=== PATIENT | male | born 1990 | race Caucasian/White ===

== ENCOUNTER 2023-11-29 05:13 | Emergency (ER) | payer OTHER, SELFPAY ==
[2023-11-29 05:15] VITALS: BP 170/106
[2023-11-29 05:37] VITALS: BMI 28.8
--- NOTE | 2023-11-29 05:39 | EDRN ---
Pt thought he had a stiff L shoulder yesterday and went to sleep last night. No known injury to shoulder, happened suddenly. Around 0415 pt woke and went to turn on the light but when he reached for it, he had a shooting pain down his L arm and it
went numb then his R hand started tingling. Pt says it took 45 minutes for him to get in a position to drive to ED. Pt says he has pain with symptoms 'almost like a sharp stabbing, achy pain.' Pt used his medical marijuana for symptoms prior to
coming to ED. No neck pain. Pt has chronic back pain.
--- NOTE | 2023-11-29 05:44 | EDRN ---
Pt says he has stiffness in between his shoulder blades and now L arm is just a dull ache - rest of symptoms resolved. Pt has no problem with R arm currently.
[2023-11-29 05:46] VITALS: BP 138/80
--- NOTE | 2023-11-29 06:40 | ED.GENMED ---
History of Present Illness
<Modesta Elliott DO, Resident - Last Filed: 11/29/23 13:38>
General
Chief Complaint: Numbness
Source: patient
Exam Limitations: clinical condition
Time Seen by Provider: 11/29/23 06:16
Nursing documentation reviewed up to this point in time: agreed with
History of Present Illness
History of Present Illness:
Mr. 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 L shoulder stiffness started mid-day yesterday and went to sleep w/o issue. Pt
woke up on left side, turned neck to the right and reached to turn on a light when a sharp 9/10 pain shot down his neck into his L arm and parasthesias down R arm. He was nauseous from the pain but did not vomit. The R arm parasthesias have
resolved. The L pain is now a dull sharp ache that is a 6/10. The pain is worsened by moving his head.
Pt used medical marijuana 2 hours earlier.
Past History
<Modesta Elliott DO, Resident - Last Filed: 11/29/23 13:38>
Past History
ED Past Medical History: Psychiatric (Anxiety, depression, agoraphobia) and Other (Spinal stenosis, sciatica, chronic pain, prior history of opiate abuse)
ED Past Surgical History: Orthopedic (Right foot surgery, bone fusion with pinning) and Tonsilectomy
Patient has exhibited threatening behavior?: No
Social History
Tobacco: Smoker
Alcohol: Occasional
Drug: Marijuana and Narcotics
Personal: Single
Living: with family
Employment: Not employed
Family History
Family History: Other (Noncontributory)
Review of Systems
<Modesta Elliott DO, Resident - Last Filed: 11/29/23 13:38>
Review of Systems
Constitutional: Denies fever, fatigue, night sweats or chills
EENT: Reports no symptoms
Respiratory: Denies cough or trouble breathing
Cardiac: Denies chest pain or palpitations
ABD/GI: Reports nausea; Denies abdominal pain or vomiting
Neurological: Denies headache
Phy Exam
<Modesta Elliott DO, Resident - Last Filed: 11/29/23 13:38>
Physical Exam
Physical Exam:
.
General Physical Exam
General Presentation: mild distress
General age: appears stated age
General Skin: warm
General Habitus: normal
Cardiovascular Exam
Cardiovascular Exam: regular rate/rhythm, no edema, no gallop and no murmur
Heart Sounds: normal
Pulmonary Exam
Pulmonary Exam: lungs clear and no respiratory distress
Gastrointestinal Exam
Gastrointestinal Exam: normal bowel sounds, non tender, soft, no organomegaly and non distended
Motor
Right upper extremity: 5
Left upper extremity: 4
Sensory
Sensory Exam: decreased sensation (on left arm)
Reflexes
Reflexes: +2: Left tricep, +2: Right tricep, +2: Left bicep, +2: Right bicep, +2: Left brachioradialis and +2: Right brachioradialis
Musculoskeletal Exam
Musculoskeletal Exam: neck pain, neuro vasc intact (+2 radial pulses b/l) and other (positive spurling's test on R)
Skin Exam
Skin Exam: normal color, warm/dry and no rash
Course
<Modesta Elliott DO, Resident - Last Filed: 11/29/23 13:38>
Orders/Labs/Results
Orders:
Orders
11/29/23 06:44
CT Cervical Spine W/o Iv Contr Urgent
Comment:
Reason For Exam: cervical radiculopathy sx
Prednisone [Deltasone] 50 mg PO NOW STA
11/29/23 08:13
MR Cervical Spine Without Urgent
Comment:
Reason For Exam: radicular sx
Recent pill cam endoscopy?: No
11/29/23 08:31
Ketorolac [Toradol] 15 mg IM NOW STA
11/29/23 08:49
Ketorolac [Toradol] 15 mg IV NOW STA
11/29/23 09:31
Midazolam HCl [Versed] 5 mg IV NOW STA
11/29/23 11:30
Midazolam HCl [Versed] 5 mg IV NOW STA
11/29/23 11:32
Ketorolac [Toradol] 15 mg IV NOW STA
11/29/23 12:13
MR Cervical Spine Without Stat
Comment:
Reason For Exam: radicular sx, poor study quality
Recent pill cam endoscopy?: No
Vital Signs
Initial and Last Documented VS:
Initial Vital Signs
Temp Pulse Resp BP Pulse Ox
98.7 F 92 22 170/106 100
11/29/23 05:15 11/29/23 05:15 11/29/23 05:15 11/29/23 05:15 11/29/23 05:15
Last Documented Vital Signs
Temp Pulse Resp BP Pulse Ox
98.7 F 82 14 148/98 98
11/29/23 05:15 11/29/23 13:00 11/29/23 13:00 11/29/23 13:00 11/29/23 13:00
<Wilfredo Mccracken, DO - Last Filed: 11/29/23 14:22>
Orders/Labs/Results
Orders:
Orders
11/29/23 06:44
CT Cervical Spine W/o Iv Contr Urgent
Comment:
Reason For Exam: cervical radiculopathy sx
Prednisone [Deltasone] 50 mg PO NOW STA
11/29/23 08:13
MR Cervical Spine Without Urgent
Comment:
Reason For Exam: radicular sx
Recent pill cam endoscopy?: No
11/29/23 08:31
Ketorolac [Toradol] 15 mg IM NOW STA
11/29/23 08:49
Ketorolac [Toradol] 15 mg IV NOW STA
11/29/23 09:31
Midazolam HCl [Versed] 5 mg IV NOW STA
11/29/23 11:30
Midazolam HCl [Versed] 5 mg IV NOW STA
11/29/23 11:32
Ketorolac [Toradol] 15 mg IV NOW STA
11/29/23 12:13
MR Cervical Spine Without Stat
Comment:
Reason For Exam: radicular sx, poor study quality
Recent pill cam endoscopy?: No
Vital Signs
Initial and Last Documented VS:
Initial Vital Signs
Temp Pulse Resp BP Pulse Ox
98.7 F 92 22 170/106 100
11/29/23 05:15 11/29/23 05:15 11/29/23 05:15 11/29/23 05:15 11/29/23 05:15
Last Documented Vital Signs
Temp Pulse Resp BP Pulse Ox
98.7 F 82 14 148/98 98
11/29/23 05:15 11/29/23 13:00 11/29/23 13:00 11/29/23 13:00 11/29/23 13:00
<Modesta Elliott DO, Resident - Last Filed: 11/29/23 13:38>
MDM/Problems Addressed
Differential Diagnosis Includes:
cervical radiculopathy, cervical radiculitis, thoracic outlet syndrome, double crush syndrome, cervical spondylosis, cervical spondylolisthesis
MDM/Problems Addressed:
Mr. 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 Concerned for cervical spine compression due to positive Spurling maneuver. Neurosurgery
consulted on CT cervical spine results and recommended MRI. Pt w neck pain from CT, so 15mg toradol given for pain management. Unable to tolerate position, so 5mg versed given
Cervical spondylosis and spondylolisthesis unlikely due to no characteristic findings on CT or MRI.
Thoracic outlet syndrome and double crush syndrome less likely due to preserved radial pulses b/l and presence of cervical pathology.
MRI exam limited due to incomplete sequences and motion artifact. Consulted w neurosurgery, who would prefer a more complete study. Pt offered ketamine for doing an MRI, but decided to leave instead. Encouraged pt to follow-up outpatient with .
[facility]
Chronic conditions affecting care: Psychiatric illness
Acute Exacerbation and/or Progression of Chronic Illness: Psychiatric illness
<Modesta Elliott DO, Resident - Last Filed: 11/29/23 13:38>
*Radiology
Radiology exam reviewed: preliminary read by ED provider and radiology read reviewed
*Pulse Oximetry
Patient hypoxic: no
*Critical Care Note
Total Time (30-74mins, 75-104mins- exclusive of procedures): Not Applicable
Data Reviewed
Review of Other/Old Records Reveals: Discharge Summary
Source: records
ED Attending Note
<Modesta Elliott DO, Resident - Last Filed: 11/29/23 13:38>
-
Portions of this chart may have been created with voice recognition software.� Occasional wrong word or��sound alike� substitutions may have occurred due to the inherent limitations of voice recognition software.
<Wilfredo Mccracken DO - Last Filed: 11/29/23 14:22>
ED Attending Note
Patient seen and examined by attending physician: Yes
I performed a history and physical exam of patient and discussed management with resident, I reviewed resident's note and agree with documented findings and plan of care.: Yes
ED Attending Note:
I reviewed and agree with history and treatment plan by Modesta Elliott D.O. My exam revealed 33-year-old male full range of motion in all extremities, somewhat decreased sensation left arm that patient states is improving. MRI that was not
completed, shows large left posterior disc herniation at C7-T1 level. Patient declined to stay for full MRI. He will follow-up with neurosurgery.
Discharge Plan
Departure
Patient Disposition: Home (Routine Discharge)
Date of Disposition: 11/29/23
Time of Disposition: 12:43
Patient with high blood pressure during this ER visit?: Yes
Condition: Fair
Discharge Problem:
Herniated cervical intervertebral disc
Instructions: Peripheral Neuropathy (DC)
Prescriptions:
New
methylprednisolone [Medrol (Silviano)] 4 mg tablets,dose pack
See Rx Instructions .ROUTE .COMPLEX Qty: 21 0RF
Rx Instructions:
for 6 days
gabapentin [Neurontin] 300 mg capsule
300 mg PO TID Qty: 30 0RF
Rx Instructions:
Take as needed for neuropathic pain.
No Action
Epidiolex 1 UNIT solution
1 dose PO DAILY PRN (Reason: pain)
Referrals:
Frankie Barrinetos, DO [Active] -
UNKNOWN - PT DOES,NOT KNOW [Family Provider] -
Activity Restrictions/Additional Instructions:
Please return if symptoms worsen. Please follow-up with neurosurgery.
Interventions
Interventions:
*Risk Screen - Suicide Last Done: 11/29/23 05:15
*General Assessment Last Done: 11/29/23 05:37
*Neglect/Abuse Screening Last Done: 11/29/23 05:15
ED- Fall Risk Assessment Last Done: 11/29/23 05:53
*ED COVID-19 Vaccine History Last Done: 11/29/23 05:37
*Nursing Disposition Last Done: 11/29/23 13:01
ED- Neurological Assessment Last Done: 11/29/23 07:13
Discharge Date and Time
Discharge Date/Time: 11/29/23 13:02
Print Language: BELARUSIAN
[2023-11-29] MEDS: DELTASONE 50 MG PO (07:02)
[2023-11-29 07:13] VITALS: BP 132/94
[2023-11-29] MEDS: TORADOL 15 MG IV ×2 (08:49→12:00)
[2023-11-29] MEDS: VERSED 5 MG IV ×2 (09:39→12:00)
[2023-11-29 09:40] VITALS: BP 145/101
[2023-11-29 13:00] VITALS: BP 148/98
== END 2023-11-29 13:02 | disposition home or self-care (01) ==
LOC: EMR 05:13
PROVIDERS: EMERGENCY PHYSICIAN Emergency Medicine
DX: M50.13 Cervical disc disorder with radiculopathy, cervicothoracic region (principal); M79.602 Pain in left arm; R11.0 Nausea; M25.612 Stiffness of left shoulder, not elsewhere classified; R03.0 Elevated blood-pressure reading, without diagnosis of hypertension; M48.00 Spinal stenosis, site unspecified; F32.A Depression, unspecified; G89.29 Other chronic pain; F41.9 Anxiety disorder, unspecified; M54.40 Lumbago with sciatica, unspecified side; K21.9 Gastro-esophageal reflux disease without esophagitis; E03.9 Hypothyroidism, unspecified; F11.11 Opioid abuse, in remission; F17.210 Nicotine dependence, cigarettes, uncomplicated; Z88.1 Allergy status to other antibiotic agents; Z88.5 Allergy status to narcotic agent; Z88.2 Allergy status to sulfonamides; Z91.048 Other nonmedicinal substance allergy status
CPT/HCPCS: 99284; 96374; 96375; 96376 ×2; 72125; 72141

== ENCOUNTER 2023-12-01 22:04 | Emergency (ER) | payer OTHER, SELFPAY ==
[2023-12-01 22:06] VITALS: BP 154/92
--- NOTE | 2023-12-01 22:41 | ED.GENMED ---
History of Present Illness
General
Chief Complaint: Musculo-Skeletal Complaint
Time Seen by Provider: 12/01/23 22:41
History of Present Illness
History of Present Illness:
HPI: Pt was reaching up for something on a shelf 2d ago and had sudden sharp pain at shoulder that radiates to shoulder and paresthesias down LUE more so on the ulnar aspect. Worse w/ movement. No improvement w/ marijuana. He was here 2 days ago
and had an incomplete MRI but the MRI did suggest large herniated disc in the lower cervical spine.
EXAM:
GENERAL: Well appearing but is in moderate distress
HEENT: Moist oral mucosa
NEUROLOGIC: Excellent strength all extremities, there is some decrease sensation to the ulnar aspect, the radian, median, and ulnar nerve distribution is just slightly decreased
PSYCHIATRIC: Appropriate mental status, normal insight and judgement, he is tearful
EXTREMITIES: Nontender, no edema, moves all extremities equally
SKIN: No rash, no lesions
TIME OF INITIAL ENCOUNTER: 11 PM
NUMBER AND COMPLEXITY OF PROBLEMS ADDRESSED AT THE ENCOUNTER
� Chronic conditions affecting care: Neuropathy, GERD, hypothyroidism, depression, substance abuse
� Acute Exacerbation and/or Progression of Chronic Illness: This is a subacute problem
� Differential Diagnosis includes: Herniated disc, nerve root impingement, musculoskeletal pain
AMOUNT AND/OR COMPLEXITY OF DATA TO BE REVIEWED AND ANALYZED
� I performed an independent evaluation of and my interpretation is:
EKG:
CT:
X-rays:
Laboratory Studies:
Other:
� Review of other/old records: I reviewed records, the patient is had several ED visits going back to 2018 which are generally pain related
� Clinical information was obtained by an independent historian: None needed
� Prescriptions/Medications Considered but not given:
� Further testing considered but not performed:
RISK OF COMPLICATIONS AND/OR MORBIDITY OR MORTALITY OF PATIENT MANAGEMENT
� Social determinants of health affecting care:
� Discussion with other providers:
� Escalation of care including admission/observation vs risk of discharge considered: I reviewed the MRI report from 2 days ago which showed large herniated disc at C7-T1 impinging upon the C8 nerve root. He does have some
decreased sensation and just very slightly decreased to the distal left upper extremity. I notified Dr. Barrientos who 'need the MRI' and I then notify Dr. Wolfe who recommended the patient stay for MRI in the morning but would not do the MRI now.
The patient does not want to stay overnight in the hospital but is willing to come back in the morning to see if we could facilitate MRI in the morning.
Past History
Past History
ED Past Medical History: Psychiatric (Anxiety, depression, agoraphobia) and Other (Spinal stenosis, sciatica, chronic pain, prior history of opiate abuse)
ED Past Surgical History: Orthopedic (Right foot surgery, bone fusion with pinning) and Tonsilectomy
Patient has exhibited threatening behavior?: No
Social History
Tobacco: Smoker
Alcohol: Occasional
Drug: Marijuana and Narcotics
Personal: Single
Living: with family
Employment: Not employed
Family History
Family History: Other (Noncontributory)
Phy Exam
Physical Exam
Physical Exam:
See HPI
Course
Orders/Labs/Results
Orders:
Orders
12/01/23 23:11
Basic Metabolic Panel Urgent
Complete Blood Count/With Diff Urgent
Vital Signs
Initial and Last Documented VS:
Initial Vital Signs
Temp Pulse Resp BP Pulse Ox
99.3 F 94 18 154/92 97
12/01/23 22:06 12/01/23 22:06 12/01/23 22:12/01/23 22:06 12/01/23 22:06
Last Documented Vital Signs
Temp Pulse Resp BP Pulse Ox
99.3 F 94 18 154/92 97
12/01/23 22:06 12/01/23 22:06 12/01/23 22:06 12/01/23 22:06 12/01/23 22:06
*Critical Care Note
Total Time (30-74mins, 75-104mins- exclusive of procedures): Not Applicable
ED Attending Note
-
Portions of this chart may have been created with voice recognition software.� Occasional wrong word or��sound alike� substitutions may have occurred due to the inherent limitations of voice recognition software.
Discharge Plan
Departure
Patient Disposition: Home (Routine Discharge)
Date of Disposition: 12/01/23
Time of Disposition: 23:19
Patient with high blood pressure during this ER visit?: Yes
Discharge Problem:
Herniated cervical disc
Prescriptions:
No Action
Epidiolex 1 UNIT solution
1 dose PO DAILY PRN (Reason: pain)
methylprednisolone [Medrol (Silviano)] 4 mg tablets,dose pack
See Rx Instructions .ROUTE .COMPLEX Qty: 21 0RF
Rx Instructions:
for 6 days
gabapentin [Neurontin] 300 mg capsule
300 mg PO TID Qty: 30 0RF
Rx Instructions:
Take as needed for neuropathic pain.
Referrals:
Frankie Barrientos, DO [Active] - Tomorrow
Zack Gonsalves, DO [Family Provider] -
Activity Restrictions/Additional Instructions:
I notify Dr. Barrientos and then I also notified radiology. Radiology could not do MRI overnight. You could try coming back to the Emergency Department in the morning and see if they could arrange for an MRI at that time.
Interventions
Interventions:
*Risk Screen - Suicide Last Done: 12/01/23 22:05
*General Assessment Last Done: 12/01/23 22:10
*Neglect/Abuse Screening Last Done: 12/01/23 22:10
*ED COVID-19 Vaccine History Last Done: 12/01/23 22:11
Discharge Date and Time
Print Language: GREENLANDIC
== END 2023-12-01 23:27 | disposition home or self-care (01) ==
LOC: EMR 22:04
PROVIDERS: EMERGENCY PHYSICIAN Emergency Medicine; FAMILY PHYSICIAN Family Medicine
DX: M50.20 Other cervical disc displacement, unspecified cervical region (principal); F41.8 Other specified anxiety disorders; F40.00 Agoraphobia, unspecified; M48.00 Spinal stenosis, site unspecified; F11.10 Opioid abuse, uncomplicated; F17.200 Nicotine dependence, unspecified, uncomplicated
CPT/HCPCS: 99282

== ENCOUNTER 2023-12-02 05:37 | Emergency (ER) | payer OTHER, SELFPAY ==
[2023-12-02] VITALS (7 sets, daily range): BP systolic 123–162; BP diastolic 70–91; BMI 28.9
--- NOTE | 2023-12-02 06:38 | ED.GENMED ---
History of Present Illness
General
Chief Complaint: Musculo-Skeletal Complaint
Time Seen by Provider: 12/02/23 06:12
History of Present Illness
History of Present Illness:
33-year-old male without significant past medical history presenting to the emergency department with persistent neck pain. Patient reports about 3 days ago he was lifting something and started to have pain in his neck with subsequent radiation
down his left upper extremity with numbness and tingling. Symptoms have been persistent. He has tried gabapentin, steroids, OTC medications. Patient had initially declined any narcotic treatment, history of opiate abuse in the past. Denies any
recent drug use. Denies fever. Patient seen in the hospital on 11/30, at which time he did have an MRI that showed concern for large disc herniation and cervical spine. However, imaging was limited secondary to motion artifact. Patient had been
discharged, returned 11/30 with continued pain. In discussion with neurosurgery, recommendation for repeat MRI. MRI not available at that time, so patient returns this morning for MRI. Denies additional acute medical complaint such as chest pain
difficulty breathing, abdominal pain.
Past History
Past History
ED Past Medical History: Psychiatric (Anxiety, depression, agoraphobia) and Other (Spinal stenosis, sciatica, chronic pain, prior history of opiate abuse)
ED Past Surgical History: Orthopedic (Right foot surgery, bone fusion with pinning) and Tonsilectomy
Patient has exhibited threatening behavior?: No
Social History
Tobacco: Smoker
Alcohol: Occasional
Drug: Marijuana and Narcotics
Personal: Single
Living: with family
Employment: Not employed
Family History
Family History: Other (Noncontributory)
Phy Exam
Physical Exam
Physical Exam:
General: Well-appearing, no clinical signs of dehydration, nontoxic and in no acute distress
HEENT: protecting airway
Neck: Mild generalized tenderness. Range of motion intact
CV: Normal heart rate, regular rhythm
Resp: No accessory muscle use, no increased work of breathing
Abd: Soft and non-distended
Extremities: No deformities, no swelling, no erythema, pulses intact. Range of motion of the left upper extremity is grossly intact. Mild decrease strength in comparison to the right side. Sensation globally intact, slight diminished sensation to
the left upper extremity.
Neuro: alert, no focal neurologic deficit
: deferred
Rectal: deferred
Psych: Normal affect
Skin: Intact
Course
Orders/Labs/Results
Orders:
Orders
12/02/23 06:25
MR Cervical Spine Without Urgent
Comment:
Reason For Exam: pain x 3 days, decreased sensation LUE
Recent pill cam endoscopy?: No
HYDROmorphone [Dilaudid] 1 mg IV NOW STA
Lorazepam [Ativan] 1 mg IV NOW STA
12/02/23 06:35
CBC/With Diff [Complete Blood Count/With Diff] Urgent
Comprehensive Metabolic Panel Urgent
12/02/23 06:40
0.9% Sodium Chloride 500 ml [Nss] 1,000 ml IV BOLUS
12/02/23 07:17
0.9% Sodium Chloride 1000 ml [Nss] 1,000 ml IV BOLUS
12/02/23 09:02
HYDROmorphone [Dilaudid] 1 mg IV NOW STA
Lorazepam [Ativan] 1 mg IV NOW STA
12/02/23 11:19
HYDROmorphone [Dilaudid] 1 mg IV NOW STA
Abnormal Lab Results
12/02/23
06:35
MCH 31.1 H pg
(27.0-31.0)
Abs Immat Gran (auto) 0.1 H 10^3/uL
(0-0.05)
Immature Gran % 0.9 H %
(0-0.5)
Potassium 3.3 L mmol/L
(3.5-5.1)
Carbon Dioxide 31 H mmol/L
(22-30)
Glucose 155 H mg/dl
(70-99)
12/02/23 06:35
12/02/23 06:35
Vital Signs
Initial and Last Documented VS:
Initial Vital Signs
Temp Pulse Resp BP Pulse Ox
98.6 F 119 20 131/90 98
12/02/23 05:39 12/02/23 05:39 12/02/23 05:39 12/02/23 05:39 12/02/23 05:39
Last Documented Vital Signs
Temp Pulse Resp BP Pulse Ox
98.6 F 86 20 162/91 98
12/02/23 05:39 12/02/23 10:26 12/02/23 05:39 12/02/23 10:24 12/02/23 10:23
MDM/Problems Addressed
MDM/Problems Addressed:
33-year-old male presenting to the emergency department for persistent neck pain and left upper extremity paresthesias. Vital signs on arrival significant for tachycardia, however suspected secondary to pain.
On exam, patient is no acute distress, however appears slightly uncomfortable secondary to pain. Suspect that patient symptoms are secondary to disc herniation, seen on prior MRI imaging at C7-T1. However, unable to appropriately evaluate spinal
canal given images are obtained. In discussion with neurosurgery yesterday, recommending repeat MRI. Patient is now agreeable to narcotics. Conversation had with patient regarding narcotics, prior history of abuse. Offered other therapies,
however patient would like to proceed with narcotics secondary to his pain and discomfort. Will treat patient's pain prior to MRI imaging to obtain better images. Lower suspicion for infectious pathology, afebrile, notes symptoms started after
overextension injury.
11:15 -CT again shows disc herniation without significant compromise to the spinal cord. Images interpreted by neurosurgery, no emergent intervention at this time. Advised outpatient follow-up and office. Patient continues to complain of pain,
would like a prescription for opiates. Did caution patient against opiates given his prior history. He reports that his dad will give him the medication when needed. Will also prescribe cyclobenzaprine with component of muscle spasm. Precautions
explained and patient verbalized understanding
*Critical Care Note
Total Time (30-74mins, 75-104mins- exclusive of procedures): Not Applicable
ED Attending Note
-
Portions of this chart may have been created with voice recognition software.� Occasional wrong word or��sound alike� substitutions may have occurred due to the inherent limitations of voice recognition software.
Discharge Plan
Departure
Prescriptions:
No Action
Epidiolex 1 UNIT solution
1 dose PO DAILY PRN (Reason: pain)
methylprednisolone [Medrol (Silviano)] 4 mg tablets,dose pack
See Rx Instructions .ROUTE .COMPLEX Qty: 21 0RF
Rx Instructions:
for 6 days
gabapentin [Neurontin] 300 mg capsule
300 mg PO TID Qty: 30 0RF
Rx Instructions:
Take as needed for neuropathic pain.
Referrals:
NONE,* [Active] -
Interventions
Interventions:
*Risk Screen - Suicide Last Done: 12/02/23 05:39
*General Assessment Last Done: 12/02/23 05:39
*Neglect/Abuse Screening Last Done: 12/02/23 05:39
*ED COVID-19 Vaccine History Last Done: 12/02/23 05:49
ED-Musculoskeletal Assessment Last Done: 12/02/23 06:15
Discharge Date and Time
Print Language: CITIZ[place] OF [place]
[2023-12-02] MEDS: NSS 1000 IV ×2 (06:41→08:02)
[2023-12-02] MEDS: DILAUDID IV ×2 (06:41→07:15)
[2023-12-02 06:48] LABS: % Basophils 0.5 % (0-2); % Eosinophils 1.1 % (0-6); % Immature Granulocytes 0.9 % (0-0.5); % Lymphocytes 32.7 % (20.5-51.1); % Monocytes 6.4 % (1.7-9.3); % Neutrophils 58.4 % (42.2-75.2); Absolute Eosinophils 0.1 10^3/uL (0-0.7); Absolute Immature Granulocytes 0.1 10^3/uL (0-0.05); Absolute Lymphocytes 2.6 10^3/uL (1.2-3.4); Absolute Monocytes 0.5 10^3/uL (0.1-0.6); Absolute Neutrophils 4.6 10^3/uL (1.4-6.5); Hematocrit 41.3 % (39.0-52.0); Hemoglobin 14.7 g/dL (13.0-18.0); Mean Corp Hgb Conc. 35.6 g/dL (33.0-37.0); Mean Corpuscular Hgb 31.1 pg (27.0-31.0); Mean Corpuscular Volume 87.3 fL (80.0-94.0); Mean Platelet Volume 9.8 fL (7.4-10.4); Nucleated Red Blood Cells % 0 % (-); Platelet Count 203 10^3/uL (130-400); Red Blood Cell Count 4.73 10^6/uL (4.70-6.10); Red Cell Dist. Width 13.2 % (11.5-14.5); White Blood Cell Count 7.9 10^3/uL (4.8-10.8)
[2023-12-02 06:57] LABS: ALT (SGPT) 19 U/L (0-50); AST (SGOT) 23 U/L (17-59); Albumin 4.1 g/dl (3.5-5.0); Alkaline Phosphatase 68 U/L (38-126); Blood Urea Nitrogen 19 mg/dl (9-20); Calcium 9.2 mg/dl (8.4-10.2); Carbon Dioxide 31 mmol/L (22-30); Chloride 102 mmol/L (98-107); Estimated Creatinine Clearance > 125 ml/min; Glucose 155 mg/dl (70-99); Potassium 3.3 mmol/L (3.5-5.1); Sodium 141 mmol/L (135-145); Total Bilirubin 0.4 mg/dl (0.2-1.3); Total Protein 6.5 g/dl (6.3-8.2); eGFR > 60.00
[2023-12-02] MEDS: DILAUDID 1 MG IV ×3 (08:02→11:22)
[2023-12-02] MEDS: ATIVAN 1 MG IV (09:06)
== END 2023-12-02 11:56 | disposition home or self-care (01) ==
LOC: EMR 05:37
PROVIDERS: EMERGENCY PHYSICIAN Student in an Organized Health Care Education/Training Program; FAMILY PHYSICIAN Family Medicine
DX: M50.23 Other cervical disc displacement, cervicothoracic region (principal); M62.830 Muscle spasm of back; F17.200 Nicotine dependence, unspecified, uncomplicated
CPT/HCPCS: 99284; 96374; 96375; 96361; 96376 ×2; 72141; 80053; 85025

== ENCOUNTER 2024-01-16 04:20 | Observation (INO) | payer OTHER, SELFPAY ==
[2024-01-15 18:33] VITALS: BP 143/86
[2024-01-15 22:02] VITALS: BP 126/78
[2024-01-15 22:06] VITALS: BP 126/78; BMI 30.2
--- NOTE | 2024-01-15 22:55 | ED.GENMED ---
History of Present Illness
General
Chief Complaint: Musculo-Skeletal Complaint
Source: patient
Exam Limitations: none
Time Seen by Provider: 01/15/24 22:34
History of Present Illness
History of Present Illness:
This is a 34 year old male that comes in with c/o neck pain. States that 5 weeks ago he was diagnosed with herniated disc. State that he had an Epidural on January 03. States that he had gotten better. Then on he raised his arms above his
head and heard a crack. States that he did see the Neuro surgeon Dr. Barnard. States that he was told to come to the ER if the pain got worse. States that he has pain under his arm and down the arm. His Thumb, index and third finger are tingling and
numb and he has pain in the tips. States that he does have an appointment on Wednesday. States that he is now having trouble with his balance. Denies any fever, chills, chest pain, SOB, abd pain, nausea, vomiting, diarrhea, headache, urinary burning.
Past History
Past History
ED Past Medical History: GERD, HTN, Hypothyroidism, Psychiatric (Anxiety, depression, agoraphobia) and Other (Spinal stenosis, sciatica, chronic pain, prior history of opiate abuse, Headache, )
ED Past Surgical History: Orthopedic (bilateral foot surgery, bone fusion with pinning) and Tonsilectomy
Patient has exhibited threatening behavior?: No
Social History
Tobacco: Former smoker
Alcohol: None
Drug: Marijuana and Narcotics
Personal: Single
Living: with family
Employment: Not employed
Family History
Family History: Other (Noncontributory)
Review of Systems
Review of Systems
All Other Systems: ROS reviewed and negative except as documented in HPI and ROS
Constitutional: Reports no symptoms; Denies fever or chills
EENT: Reports no symptoms
Respiratory: Reports no symptoms; Denies cough or trouble breathing
Cardiac: Reports no symptoms; Denies chest pain
ABD/GI: Reports no symptoms; Denies abdominal pain, nausea, vomiting or diarrhea
: Reports no symptoms; Denies dysuria, frequency or urgency
Musculoskeletal: Reports neck pain
Skin: Reports no symptoms
Neurological: Reports other (balance is off); Denies dizzy or headache
Psychiatric: Reports no symptoms
Phy Exam
General Physical Exam
General Presentation: moderate distress
General age: appears stated age
General Skin: warm and dry
General Habitus: normal
General Mental: alert and tearful
General Hydration: appears well hydrated
ENT Exam
ENT Exam: TM's normal, pharynx normal and neck supple
Eye Exam
Eye Exam: EOMI
Cardiovascular Exam
Cardiovascular Exam: regular rate/rhythm, no edema, no murmur and normal peripheral pulses
Pulmonary Exam
Pulmonary Exam: lungs clear, no respiratory distress, no rales, chest non tender, no crackles, no rhonchi, no wheezing and no cough
Gastrointestinal Exam
Gastrointestinal Exam: normal bowel sounds, non tender, soft, no organomegaly, no pulsatile mass and non distended
Musculoskeletal Exam
Musculoskeletal Exam: no edema and other (left sided neck tenderness down into shoulder. )
Skin Exam
Skin Exam: normal color, warm/dry, no rash and no petechia
Psychiatric Exam
Psychiatric Exam: normal mood/affect
Course
Orders/Labs/Results
Orders:
Orders
01/15/24 22:53
0.9% Sodium Chloride 1000 ml [Nss] 1,000 ml IV BOLUS
HYDROmorphone [Dilaudid] 1 mg IV NOW STA
01/15/24 22:54
Ondansetron Injectable [Zofran] 4 mg IV NOW STA
01/15/24 23:04
Dexamethasone Sod Phosphate [Decadron] 20 mg IV NOW STA
Ketorolac [Toradol] 30 mg IV NOW STA
01/15/24 23:20
CRP [C-Reactive Protein] Urgent
Complete Blood Count/With Diff Urgent
Comprehensive Metabolic Panel Urgent
Sed Rate [Erythrocyte Sed Rate] Urgent
01/15/24 23:57
HYDROmorphone [Dilaudid] 1 mg .ROUTE .STK-MED ONE
01/15/24 23:58
HYDROmorphone [Dilaudid] 1 mg IV NOW STA
01/16/24 00:00
CT Cervical Spine W/ Iv Contra Urgent
Comment: recet epidural
Reason For Exam: neck pain
01/16/24 01:52
HYDROmorphone [Dilaudid] 1 mg IV NOW STA
Abnormal Lab Results
01/15/24
23:20
MCH 31.7 H pg
(27.0-31.0)
Total Bilirubin 0.1 L mg/dl
(0.2-1.3)
01/15/24 23:20
01/15/24 23:20
Labs unremarkable. Sed rate normal at 9 and CRP normal <5.0,
Vital Signs
Initial and Last Documented VS:
Initial Vital Signs
Temp Pulse Resp BP Pulse Ox
98.6 F 98 16 143/86 98
01/15/24 18:33 01/15/24 18:33 01/15/24 18:33 01/15/24 18:33 01/15/24 18:33
Last Documented Vital Signs
Temp Pulse Resp BP Pulse Ox
98.6 F 86 24 126/78 99
01/15/24 18:33 01/15/24 22:06 01/15/24 22:06 01/15/24 22:06 01/15/24 22:06
Manager Shell consulted with Physician
Manager Shell consulted with physician?: Yes
Name of Physician Consulted: Dr Boudreaux
MDM/Problems Addressed
Differential Diagnosis Includes:
Herniated disc, Cervical abscess
MDM/Problems Addressed:
This is a 34 year old male that comes in with c/o cervical neck pain after lifting his arms up over his head on .
will check labs. CT neck and medicate for pain.
CT cont- for assessment for spinal stenosis. MRI is recommended for further assessment for degree of foraminal/spinal stenoses. Back into see patient. Patient is crying in bed with pain. Will admit as will need MRI. Hospitalist notified.
Chronic conditions affecting care:
Herniated disc
Acute Exacerbation and/or Progression of Chronic Illness:
Herniated disc
*Radiology
Radiology exam reviewed: radiology read reviewed (CT night hawk- please note that CT modality is not diagnostic for assessment for epidural/intraspinal abscess. MRI is recommended for further assessment for epidural/intraspinal abscess. No evidence
of acute fracture or dislocation. Multilevel degenerative change, including a large C5-C6 anterior ), all reviewed NAD by ED Provider (CT cont-disc osteophyte complex, with a mildly prominent C6-C7 anterior disc osteophyte complex also noted. There
is moderate to severe right foraminal stenosis at C6-C7 associated with a posterior disc osteophyte complex and uncovertebral arthropathy, and mild to moderate right foraminal stenosis ) and other (CT cont- at C3-C4 associated with an eccentric to
the right posterior disc osteophyte compex and uncovertebral arthropathy. There is likely at least moderate spine stenosis at C5-C6 associated with a posterior disc osteophyte complex. Please note that Ct is limited and has low sensitivity for )
*Pulse Oximetry
Patient hypoxic: no
*EKG
Interpreted by ED Provider?: NA
Rate: EKG- N/A
*Encapsulator Interpretation
Rate: Encapsulator- N/A
*Critical Care Note
Total Time (30-74mins, 75-104mins- exclusive of procedures): Not Applicable
ED Attending Note
-
Portions of this chart may have been created with voice recognition software.� Occasional wrong word or��sound alike� substitutions may have occurred due to the inherent limitations of voice recognition software.
Discharge Plan
Departure
Patient Disposition: Admit
Date of Disposition: 01/16/24
Time of Disposition: 01:56
Admit to: Med/Surg
Presentation/result/management discussed w/ accepting MD/DO: Hospitalist
Patient with high blood pressure during this ER visit?: No
Condition: Fair
Covid-19: Not Applicable
Discharge Problem:
Cervical pain (neck)
Prescriptions:
No Action
Epidiolex 1 UNIT solution
1 dose PO DAILY PRN (Reason: pain)
methylprednisolone [Medrol (Silviano)] 4 mg tablets,dose pack
See Rx Instructions .ROUTE .COMPLEX Qty: 21 0RF
Rx Instructions:
for 6 days
gabapentin [Neurontin] 300 mg capsule
300 mg PO TID Qty: 30 0RF
Rx Instructions:
Take as needed for neuropathic pain.
cyclobenzaprine 10 mg tablet
10 mg PO TID PRN (Reason: muscle spasm) 5 Days Qty: 15 0RF
oxycodone 5 mg capsule
5 mg PO Q6H PRN (Reason: Pain) Qty: 10 0RF
Referrals:
Khanh Nagy MD [Family Provider] -
Interventions
Interventions:
*Risk Screen - Suicide Last Done: 01/15/24 18:33
*General Assessment Last Done: 01/15/24 18:33
*Neglect/Abuse Screening Last Done: 01/15/24 18:33
ED-Musculoskeletal Assessment Last Done: 01/15/24 22:07
Discharge Date and Time
Print Language: SLOVAK
[2024-01-15] MEDS: DILAUDID 1 MG IV ×2 (23:09→23:58)
[2024-01-15] MEDS: NSS 1000 IV (23:10)
[2024-01-15] MEDS: TORADOL 30 MG IV (23:16)
[2024-01-15] MEDS: DECADRON 20 MG IV (23:16)
[2024-01-15 23:34] LABS: % Basophils 0.6 % (0-2); % Eosinophils 3.1 % (0-6); % Immature Granulocytes 0.5 % (0-0.5); % Lymphocytes 30.1 % (20.5-51.1); % Monocytes 8.3 % (1.7-9.3); % Neutrophils 57.4 % (42.2-75.2); Absolute Eosinophils 0.2 10^3/uL (0-0.7); Absolute Monocytes 0.5 10^3/uL (0.1-0.6); Absolute Neutrophils 3.7 10^3/uL (1.4-6.5); Hematocrit 42.9 % (39.0-52.0); Hemoglobin 15.2 g/dL (13.0-18.0); Mean Corp Hgb Conc. 35.4 g/dL (33.0-37.0); Mean Corpuscular Hgb 31.7 pg (27.0-31.0); Mean Corpuscular Volume 89.6 fL (80.0-94.0); Mean Platelet Volume 10.3 fL (7.4-10.4); Nucleated Red Blood Cells % 0 % (-); Platelet Count 178 10^3/uL (130-400); Red Blood Cell Count 4.79 10^6/uL (4.70-6.10); Red Cell Dist. Width 12.8 % (11.5-14.5); White Blood Cell Count 6.5 10^3/uL (4.8-10.8)
[2024-01-15 23:49] LABS: ALT (SGPT) 23 U/L (0-50); AST (SGOT) 24 U/L (17-59); Albumin 4.5 g/dl (3.5-5.0); Alkaline Phosphatase 76 U/L (38-126); Blood Urea Nitrogen 17 mg/dl (9-20); Calcium 9.4 mg/dl (8.4-10.2); Carbon Dioxide 26 mmol/L (22-30); Chloride 107 mmol/L (98-107); Estimated Creatinine Clearance > 125 ml/min; Glucose 87 mg/dl (70-99); Potassium 4.2 mmol/L (3.5-5.1); Sodium 145 mmol/L (135-145); Total Bilirubin 0.1 mg/dl (0.2-1.3); Total Protein 7.1 g/dl (6.3-8.2); eGFR > 60.00
[2024-01-16] LABS: C-Reactive Protein < 5.00 mg/L (0.0-10.00)
[2024-01-16 00:01] LABS: Erythrocyte Sed Rate 9 mm/hour (0-20)
[2024-01-16] MEDS: DILAUDID 1 MG IV (02:05)
[2024-01-16 02:56] VITALS: BP 136/77
--- NOTE | 2024-01-16 04:32 | HPS.HSE ---
Family Physician
-
Family Physician: Khanh Nagy
Chief Complaint
-
Left-sided and shoulder pain
History of Present Illness
This is a 34-year-old who had recent history of cervical spine disc ideation about 5 weeks ago presenting to the emergency department approximately 12 days after his epidural injection for episode of worsening left arm and shoulder pain.
Patient had the diagnosis of the cervical herniation approximately 5 weeks ago. He had no specific trauma. He was simply getting up and moving easier right hand to I just switch when he suddenly developed pain in his neck. He was diagnosed with
this in the emergency department and started on conservative therapy with pain medications including NSAIDs, neuropathic pain control and antispasmodic. He ultimately had a epidural steroid injection on January 03. Has been seen by neurosurgery.
Patient reported that he had marked improvement in symptoms up until 2 days ago when while raising his arm above his head he suddenly felt a crack and developed worsening pain localized in between his shoulder blades and below his left. Pain is
worse with raising the arm. He reports tingling at the tips of his fourth fingers. Did not describe any weakness. He said no fevers or chills. There has been no nausea or vomiting.
In the emergency department he was afebrile, hemodynamically stable. He was not in significant distress due to pain. CBC was unremarkable. Chemistries were also unremarkable. He had a cervical spine CT which was essentially nondiagnostic
diagnostics showing multilevel degenerative changes of the cervical spine, possible C5-C6 spinal stenosis.
Medical History
Past Medical History
Past Medical History: Reports Other (Cervical spine and needed this)
Additional Past Medical History:
Irritable bowel syndrome
Past Surgical History: Reports Orthopedic (Bilateral lower extremity/ankle surgery)
Social History
Tobacco: Non-smoker
Alcohol: None
Drug: Marijuana
Personal: Single
Living: With Family
Employment: Not Employed
Family History
Family History: Not pertinent
Allergies / Home Medications
Allergies reflects when Allergies were last updated in [employer].
Home Medications with original date entered in [employer]
Allergy/Medication List:
Allergies
Allergy/AdvReac Type Severity Reaction Status Date / Time
erythromycin base Allergy Unknown Verified 01/15/24 18:32
[Erythromycin Base]
Sulfa (Sulfonamide Allergy Swelling Verified 01/15/24 18:32
Antibiotics)
adhesive tape Allergy Rash Uncoded 01/15/24 18:32
narcotics Allergy states has Uncoded 01/15/24 18:32
a hx of
addiction
Home Medications
amoxicillin 500 mg tablet 500 mg PO TID 01/16/24
gabapentin 300 mg capsule (Neurontin) 300 mg PO BID Neurological Condition 01/16/24
gabapentin 600 mg tablet 600 mg PO QHS 01/16/24
tizanidine 4 mg tablet (Zanaflex) 4 mg PO Q8H PRN pain 01/16/24
Review of Systems
-
History Source: Patient
Constitutional: Reports No Symptoms
EENT: Reports Mouth Pain (tooth abscess)
Respiratory: Reports No Symptoms
Cardiac: Reports No Symptoms
Abdomen/GI: Reports No Symptoms
: Reports No Symptoms
Musculoskeletal: Reports Joint Pain
Skin: Reports No Symptoms
Neurological: Reports Numbness (distal left upper extremity numbness)
Endocrine: Reports No Symptoms
Hematologic/Lymphatic: Reports No Symptoms
Psych: Reports No Symptoms
Physical Exam
Vital Signs
Vital Signs
Temp Pulse Resp BP Pulse Ox
98.6 F 93 24 136/77 100
01/15/24 18:33 01/16/24 02:56 01/16/24 02:56 01/16/24 02:56 01/16/24 02:56
Physical Exam
General: Well Developed, Well Nourished, Appears in Distress and Pain
HEENT: NormoCephalic, Anicteric, Moist mucous membranes and Atraumatic
Respiratory: Clear
Cardiac: S1/S2 and Regular Rhythm
Breast: Deferred by me
GI: Soft, Non Tender, Non Distended and Normal Bowel Sounds
Rectal: Deferred by Provider
Genito-urinary: Deferred by me
Musculoskeletal: No Clubbing, No Cyanosis and No Edema
Skin: Warm
Neuro: AO x 3, No Motor Deficits, No Sensory Deficits and DTR's Intact & Symmetrical
Psych: Agitated and Anxious
Laboratory Results
-
01/15/24 23:20
01/15/24 23:20
Laboratory Results
Total Bilirubin 0.1 mg/dl (0.2-1.3) L 01/15/24 23:20
AST 24 U/L (17-59) 01/15/24 23:20
ALT 23 U/L (0-50) 01/15/24 23:20
Alkaline Phosphatase 76 U/L (38-126) 01/15/24 23:20
Data Reviewed
-
CT Scan: Report Reviewed by me
Lab Data: Labs Reviewed by me
Old Records: Reviewed
Impression/Plan
-
IMPRESSION:
Patient with h/o cervical spine herniated disc and pain comes to ED with worsening pain despite epidural injection on January 03. Pain relief noted until 2 days ago. Numbness/tingling of the left fingers. No weakness on examination. No sensory
losses. No incontinence of the bladder or bowel. So signs of systemic infection. The leading dgx is exacerbation of radiculopathy. Less likely is an epidural complication of the steroid injection. Unlikely myelopathy. CT cervical spine in ED
obviously non-diagnostic. MRI would rule out an epidural complication but likely will not affect immediate management of radiculopathy unless weakness occurs. Patient has been seen by Dr. Barnard in the past but no prior surgeries.
PLAN:
1. Cervical Radiculopathy - no weakness.
- admit to med/surg obs
- mri c-spine w/ & w/o contrast
- pain control with gabapentin, acetaminophen, toradol and morphine prn
- continue tizanidine
continue amoxicillin for tooth abscess
DVT PPX w/ lovenox sq
Full Code
[2024-01-16] MEDS: AMOXIL 500 MG PO ×2 (05:05→07:43)
[2024-01-16] MEDS: MORPHINE SULFATE 2 MG IV (05:06)
[2024-01-16] MEDS: NEURONTIN 300 MG PO (05:06)
[2024-01-16 05:14] VITALS: BP 139/81
--- NOTE | 2024-01-16 05:30 | PTCARENOTE ---
Pt received from ED to [id number]. Pt oriented to room and call austin.
[2024-01-16 05:33] VITALS: BMI 30.3
[2024-01-16 05:44] VITALS: BP 154/93
[2024-01-16] MEDS: ROXICODONE 15 MG PO ×3 (07:03→14:22)
[2024-01-16] MEDS: TORADOL 15 MG IV (11:42)
[2024-01-16] MEDS: TYLENOL 650 MG PO (11:43)
[2024-01-16] MEDS: NICODERM TRANSDERMAL 14 MG TRANSDERM (13:30)
[2024-01-16] MEDS: LIORESAL 5 MG PO (13:30)
--- NOTE | 2024-01-16 13:35 | W.PN.HOSP.TC ---
Addendum entered and electronically signed by Brandon Diaz MD 01/16/24 15:01:
[id number]
Original Note:
Today's Communication/Plan
-
Medrol Pack
NSG outpatient tomorrow
Assessment / Plan
Assessment / Plan
Physical Exam
General: Well Developed, Well Nourished, Appears in Distress and Pain
HEENT: NormoCephalic, Anicteric, Moist mucous membranes and Atraumatic
Respiratory: Clear
Cardiac: S1/S2 and Regular Rhythm
Breast: Deferred by me
GI: Soft, Non Tender, Non Distended and Normal Bowel Sounds
Rectal: Deferred by Provider
Genito-urinary: Deferred by me
Musculoskeletal: No Clubbing, No Cyanosis and No Edema
Skin: Warm
Neuro: AO x 3, No Motor Deficits, No Sensory Deficits and DTR's Intact & Symmetrical
Psych: Agitated and Anxious
Patient with h/o cervical spine herniated disc and pain comes to ED with worsening pain despite epidural injection on January 03. Pain relief noted until 2 days ago. Numbness/tingling of the left fingers. No weakness on examination. No sensory
losses. No incontinence of the bladder or bowel. So signs of systemic infection. The leading dgx is exacerbation of radiculopathy. Less likely is an epidural complication of the steroid injection. Unlikely myelopathy. CT cervical spine in ED
obviously non-diagnostic. MRI would rule out an epidural complication but likely will not affect immediate management of radiculopathy unless weakness occurs. Patient has been seen by Dr. Barnard in the past but no prior surgeries.
PLAN:
#Cervical Radiculopathy - no weakness
-large focal left sided posterior herniation of the intervertebral disc extending into the left C8 neural foramen associated with severe left C8 foraminal stenosis.
-spoke to NS - start medrol pack
-F/u NSG outpatient tomorrow (Already has appt tomorrow)
-pain control, muscle relaxants
-paint wants to go home
#tooth abscess
-continue amoxicillin for tooth abscess as prior
DVT PPX w/ lovenox sq
Full Code
More than 30 minutes spent in discharge including
Final examination of the patient
Summarizing hospital stay
Instructions for continuing care to all relevant caregivers
Preparation of discharge records, prescriptions, and referral forms
Total time spent (35 in minutes):
Anticipated Discharge: Today
Subjective/Interval History
-
Date of Service: January 16, 2024
still having Cervical Radiculopathy
Objective Data
-
Vital Signs:
Vital Signs
Temp Pulse Resp BP Pulse Ox
98.1 F 87 21 154/93 94
01/16/24 05:44 01/16/24 05:44 01/16/24 05:44 01/16/24 05:44 01/16/24 05:44
I&O
01/15/24 01/16/24 01/17/24
06:59 06:59 06:59
Intake Total 200 / 200
Output Total 225 / 225
Balance -25 / -25
Review of Systems
-
History Source: Patient
All other systems: Not reviewed unless documented
Data Reviewed
-
CT Scan: Image personally visualized and interpreted
MRI: Image personally visualized and interpreted
Labs: Labs Reviewed by me
--- NOTE | 2024-01-16 13:40 | W.DS.TRANS ---
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
-
Discharge Instructions:
Discharge Diagnosis/Procedures #Cervical Radiculopathy
#Large focal left sided posterior herniation of
the intervertebral disc extending into the left
C8 neural foramen associated with severe left C8
foraminal stenosis.
Activity As tolerated
Instructions:
Stand-Alone Forms:
Changes to Home Medications: Yes
Discharge Medications:
DC Medications w/original date entered in [employer]
amoxicillin 500 mg tablet 500 mg PO TID Infection 01/16/24
diclofenac sodium 50 mg tablet,delayed release 50 mg PO TID Pain 01/16/24
gabapentin 300 mg capsule (Neurontin) 300 mg PO BID Neurological Condition 01/16/24
gabapentin 600 mg tablet 600 mg PO QHS Neurological Condition 01/16/24
methylprednisolone 4 mg tablets in a dose pack (Medrol (Silviano)) See Rx Instructions PO .COMPLEX #21 ea 01/16/24
tizanidine 4 mg tablet (Zanaflex) 4 mg PO Q8H PRN pain 01/16/24
Home Medication Changes
methylprednisolone 4 mg tablets in a dose pack (Medrol (Silviano)) See Rx Instructions PO .COMPLEX #21 ea 01/16/24
Pending Results: No
--- NOTE | 2024-01-16 14:12 | CM ---
Patient seen bedside, initial assessment completed. Patient resides with family in a multiple story home, reports he uses a cane when needed. Patient denies VN/SNF, PCP Dr. Nagy, pharmacy [facility], confirms prescription coverage.
Patient denies insecurities at home. OBS form reviewed, refused to sign, placed in chart, patient provided with copy. CM will continue to follow for all discharge planning needs.
Plan; home no needs.
[2024-01-16] MEDS: MEDROL 24 MG PO (14:22)
[2024-01-16 15:26] VITALS: BP 138/98
== END 2024-01-16 16:06 | disposition home or self-care (01) ==
LOC: 4 WEST ACU 04:20
PROVIDERS: Clinical Nurse Specialist Family Health; ADMITTING PHYSICIAN Internal Medicine; ATTENDING PHYSICIAN Internal Medicine; EMERGENCY PHYSICIAN Student in an Organized Health Care Education/Training Program; FAMILY PHYSICIAN Family Medicine
DX: M50.13 Cervical disc disorder with radiculopathy, cervicothoracic region (principal); K21.9 Gastro-esophageal reflux disease without esophagitis; G89.29 Other chronic pain; I10 Essential (primary) hypertension; M47.22 Other spondylosis with radiculopathy, cervical region; E03.9 Hypothyroidism, unspecified; K04.7 Periapical abscess without sinus; F41.9 Anxiety disorder, unspecified; F32.A Depression, unspecified; F40.00 Agoraphobia, unspecified; F11.11 Opioid abuse, in remission; M48.03 Spinal stenosis, cervicothoracic region; M25.512 Pain in left shoulder; K58.9 Irritable bowel syndrome, unspecified; Z88.2 Allergy status to sulfonamides; Z88.1 Allergy status to other antibiotic agents; Z87.891 Personal history of nicotine dependence; Z88.5 Allergy status to narcotic agent
CPT/HCPCS: 72126; 72156; 80053; 85025; 85652; 86140; 96361; 96374; 96375; 96376; 99284; A9575; G0378

== ENCOUNTER 2024-07-05 12:36 | Emergency (ER) | payer OTHER, SELFPAY ==
[2024-07-05 13:15] VITALS: BMI 34.0
[2024-07-05] MEDS: TORADOL 30 MG IM (14:13)
[2024-07-05] MEDS: FLEXERIL 10 MG PO (14:13)
--- NOTE | 2024-07-05 15:10 | ED.GENMED ---
History of Present Illness
General
Chief Complaint: Musculo-Skeletal Complaint
Time Seen by Provider: 07/05/24 13:10
History of Present Illness
History of Present Illness:
34-year-old male with prior history of cervical disc disease presenting to the emergency department for left-sided neck pain. Patient notes that he woke up with the pain after a shift at work. Denies any known injury to the neck. Pain is worse
with any type of rotation to the right. Patient reports about 7 to 8 months ago he had spinal fusion in his upper thoracic spine. Denies any complications from this procedure. Denies numbness or tingling to his upper extremities. Denies any
weakness to his extremities. Denies visual changes pain radiates up to his head. Denies additional acute medical complaints.
Past History
Past History
ED Past Medical History: GERD, HTN, Hypothyroidism, Psychiatric (Anxiety, depression, agoraphobia) and Other (Spinal stenosis, sciatica, chronic pain, prior history of opiate abuse, Headache, )
ED Past Surgical History: Orthopedic (bilateral foot surgery, bone fusion with pinning) and Tonsilectomy
Patient has exhibited threatening behavior?: No
Social History
Tobacco: Former smoker
Alcohol: None
Drug: Marijuana and Narcotics
Personal: Single
Living: with family
Employment: Not employed
Family History
Family History: Other (Noncontributory)
Phy Exam
Physical Exam
Physical Exam:
General: Well-appearing, no clinical signs of dehydration, nontoxic and in no acute distress
HEENT: protecting airway
Neck: appears supple. No midline tenderness, hypertonicity to the left cervical musculature, particularly at the paraspinal musculature. Range of motion is grossly intact with rotation, limited to the right secondary to pain.
CV: Normal heart rate
Resp: No accessory muscle use, no increased work of breathing
Abd: No distention
Extremities: No deformities, no swelling, no erythema, pulses and sensation intact
Neuro: alert, no focal neurologic deficit
: deferred
Rectal: deferred
Psych: Normal affect
Skin: Intact
Course
Orders/Labs/Results
Orders:
Orders
07/05/24 13:47
CT Cervical Spine W/o Iv Contr Urgent
Comment:
Reason For Exam: pain with movement, hx surgery to thoracic
Cyclobenzaprine HCl [Flexeril] 10 mg PO NOW STA
Ketorolac [Toradol] 30 mg IM NOW STA
Vital Signs
Initial and Last Documented VS:
Initial Vital Signs
Temp Pulse Resp Pulse Ox
98.2 F 75 16 98
07/05/24 12:42 07/05/24 12:42 07/05/24 12:42 07/05/24 12:42
Last Documented Vital Signs
Temp Pulse Resp Pulse Ox
98.2 F 75 16 98
07/05/24 12:42 07/05/24 12:42 07/05/24 12:42 07/05/24 12:42
MDM/Problems Addressed
MDM/Problems Addressed:
34-year-old male presenting for left-sided neck pain, which started after he awoke from sleep. Vital signs on arrival are normal
On exam, patient is resting comfortably, no distress or discomfort. On examination of the neck, no midline tenderness, tenderness is focused to the cervical musculature and paraspinal musculature. Ultimately suspect torticollis and cervical
strain, likely from a sleeping position. Patient denies any direct trauma to the area. No concern for any spinal compression, strength and sensation are intact to upper extremities. Given recent history of surgical intervention, will screen with
CT cervical spine imaging. For comfort, patient administered Toradol and cyclobenzaprine.
15:10 - CT is negative for any acute process. Patient reports symptom improvement after given therapeutics. At this time continue to suspect muscular strain and spasm. Feel stable for discharge with outpatient follow-up and continued supportive
therapy. Patient notes that he already has muscle relaxers at home. Will prescribe high-dose ibuprofen.
*Critical Care Note
Total Time (30-74mins, 75-104mins- exclusive of procedures): Not Applicable
ED Attending Note
-
Portions of this chart may have been created with voice recognition software.� Occasional wrong word or��sound alike� substitutions may have occurred due to the inherent limitations of voice recognition software.
Discharge Plan
Departure
Prescriptions:
No Action
gabapentin 600 mg Tablet
600 mg PO QHS
Rx Instructions:
taken at night
tizanidine [Zanaflex] 4 mg Tablet
4 mg PO Q8H PRN (Reason: pain)
amoxicillin 500 mg Tablet
500 mg PO TID
gabapentin [Neurontin] 300 mg capsule
300 mg PO BID
Rx Instructions:
Take as needed for neuropathic pain.
diclofenac sodium 50 mg Tablet,Delayed Release (Dr/Ec)
50 mg PO TID
methylprednisolone [Medrol (Silviano)] 4 mg tablets,dose pack
See Rx Instructions .ROUTE .COMPLEX Qty: 21 0RF
Rx Instructions:
orally per package directions
Referrals:
NONE,* [Family Provider] -
Interventions
Interventions:
*Risk Screen - Suicide Last Done: 07/05/24 12:42
*General Assessment Last Done: 07/05/24 13:16
*Neglect/Abuse Screening Last Done: 07/05/24 12:42
*ED- Fall Risk Assessment Last Done: 07/05/24 13:16
*ED COVID-19 Vaccine History Last Done: 07/05/24 13:16
ED-Musculoskeletal Assessment Last Done: 07/05/24 13:16
Discharge Date and Time
Print Language: HONDURAN
== END 2024-07-05 15:46 | disposition home or self-care (01) ==
LOC: EMR 12:36
PROVIDERS: EMERGENCY PHYSICIAN Student in an Organized Health Care Education/Training Program
DX: S16.1XXA Strain of muscle, fascia and tendon at neck level, initial encounter (principal); M43.6 Torticollis; X58.XXXA Exposure to other specified factors, initial encounter; K21.9 Gastro-esophageal reflux disease without esophagitis; I10 Essential (primary) hypertension; E03.9 Hypothyroidism, unspecified; Z87.891 Personal history of nicotine dependence; Z98.1 Arthrodesis status
CPT/HCPCS: 99284; 72125